=== PATIENT | male | born 1970 | race African-American/Black ===

== ENCOUNTER 2019-08-16 14:23 | Emergency (ER) | payer OTHER ==
[~2019-08-16] VITALS: Ht 170.2 cm; Wt 88.0 kg
[2019-08-16 16:42] VITALS: BP 122/86
== END 2019-08-16 16:42 | disposition home or self-care (01) ==
LOC: ER 14:23
DX: L03.211 Cellulitis of face (principal)
CPT/HCPCS: 10060; 99283